=== PATIENT | male | born 1980 | race Caucasian/White ===

== ENCOUNTER 2017-01-14 22:33 | Emergency (ER) | payer OTHER ==
[2017-01-14] MEDS ORDERED: TDAP ADULT 0.5 ML INJ (BOOSTRIX) IM ONE (23:21)
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
[2017-01-14 23:59] VITALS: BP 123/72; PULSE 74; RESP 20; TEMP 98.1; O2SAT 94
== END 2017-01-14 23:58 | disposition home or self-care (01) ==
PROC: 3E0T3BZ Introduction of Anesthetic Agent into Peripheral Nerves and Plexi, Percutaneous Approach (ICD-10-PCS; principal; 2017-01-14)
DX: S61.217A Laceration without foreign body of left little finger without damage to nail, initial encounter (principal); Z23 Encounter for immunization; W45.8XXA Other foreign body or object entering through skin, initial encounter

== ENCOUNTER 2017-02-04 08:31 | Emergency (ER) | payer OTHER ==
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
[2017-02-04] MEDS ORDERED: OXYCODONE/APAP 5/325 TAB PO ONE (09:30)
[2017-02-04] MEDS ORDERED: SILVER SULFADIAZINE 50 GM JAR TP ONE (10:07)
[2017-02-04 10:34] VITALS: BP 112/76; PULSE 76; RESP 16; TEMP 98.4; O2SAT 99
== END 2017-02-04 10:32 | disposition home or self-care (01) ==
DX: T25.211A Burn of second degree of right ankle, initial encounter (principal); T24.231A Burn of second degree of right lower leg, initial encounter; T25.212A Burn of second degree of left ankle, initial encounter; X19.XXXA Contact with other heat and hot substances, initial encounter; Y92.89 Other specified places as the place of occurrence of the external cause; Y99.0 Civilian activity done for income or pay; Y93.89 Activity, other specified